=== PATIENT | female | born 1990 | race Caucasian/White ===

== ENCOUNTER 2020-08-11 12:13 | Emergency (ER) | payer OTHER ==
[~2020-08-11] VITALS: Ht 162.6 cm; Wt 44.5 kg
[2020-08-11] MEDS ORDERED: SKELAXIN800 MG PO (16:52)
[2020-08-11] MEDS ORDERED: NAPROXEN SODIU PO (16:52)
== END 2020-08-11 17:11 | disposition home or self-care (01) ==
LOC: ER 12:13
DX: S33.5XXA Sprain of ligaments of lumbar spine, initial encounter (principal); M62.830 Muscle spasm of back; W01.198A Fall on same level from slipping, tripping and stumbling with subsequent striking against other object, initial encounter; Y93.89 Activity, other specified; Y92.59 Other trade areas as the place of occurrence of the external cause; Y99.8 Other external cause status